=== PATIENT | male | born 1970 | race Caucasian/White ===

== ENCOUNTER 2020-05-24 03:01 | Emergency (ER) | payer MEDICAID, OTHER ==
[2020-05-24 03:22] VITALS: BP 160/98; PULSE 59
[2020-05-24] MEDS ORDERED: Ketorolac 30 MG/ML SDV IVPUSH ONE (03:42)
[2020-05-24] MEDS ORDERED: Sodium Chloride 0.9% 1,000 ML IV ONE (03:42)
[2020-05-24] MEDS ORDERED: Sodium Chloride 0.9% 10 ML Syringe FLUSH PRN (03:42)
[2020-05-24] MEDS ORDERED: Ondansetron 4 MG/2 ML SDV IVPUSH ONE (03:43)
--- NOTE | 2020-05-24 04:01 | EDM.PDOC ---
ED HPI GENERAL MEDICAL PROBLEM - General Chief Complaint: Genitourinary Problem Stated Complaint: KIDNEY STONES Time Seen by Provider: 05/24/20 03:37 Source of Information: Reports: Patient History Limitations: Reports: No Limitations - History of Present Illness INITIAL COMMENTS - FREE TEXT/NARRATIVE: Kumar is a 49-year-old male presenting to the ED with acute onset of right flank pain radiating down to the groin and lower abdomen. He denies any fever or chills. He did have some diaphoresis secondary to pain and mild nausea. His symptoms started around 0100 hrs. when he got up and thought he had to go to the bathroom. He drank some water because he felt thirsty and almost immediately had acute onset of the right flank pain. He tried to urinate but was unsuccessful and it caused increase in the pain. The patient reports that he has been having some difficulty with urination for about a week but had attributed it to being 49 years old and having a maturing prostate. States that he did not have a good flow of his urine. He has no previous history of kidney stones. He is taking subweight loss supplement that is in pill form but he is unsure of the name or what is in it. On presentation, his pain is a 9 out of 10 in intensity. Right Flank Pain Score (Numeric/FACES): 7 - Related Data Allergies Allergy/AdvReac Type Severity Reaction Status Date / Time No Known Allergies Allergy Verified 05/24/20 03:16 Home Meds: Home Meds NK [No Known Home Meds] 05/24/20 [History] Past Medical History HEENT History: Reports: Impaired Vision Social & Family History - Tobacco Use Tobacco Use Status *Q: Never Tobacco User - Caffeine Use Caffeine Use: Reports: None ED ROS GENERAL - Review of Systems Review Of Systems: See Below Constitutional: Reports: Diaphoresis HEENT: Reports: No Symptoms Respiratory: Reports: No Symptoms Cardiovascular: Reports: No Symptoms Endocrine: Reports: No Symptoms GI/Abdominal: Reports: Abdominal Pain, Nausea : Reports: Flank Pain, Urinary Retention Musculoskeletal: Reports: No Symptoms Skin: Reports: No Symptoms Neurological: Reports: No Symptoms Psychiatric: Reports: No Symptoms Hematologic/Lymphatic: Reports: No Symptoms Immunologic: Reports: No Symptoms ED EXAM, RENAL/ - Physical Exam Exam: See Below Exam Limited By: No Limitations General Appearance: Alert, No Apparent Distress Eye Exam: Bilateral Eye: EOMI, PERRL Head: Atraumatic, Normocephalic Neck: Normal Inspection, Supple, Non-Tender, Full Range of Motion Respiratory/Chest: No Respiratory Distress, Lungs Clear, Normal Breath Sounds Cardiovascular: Normal Peripheral Pulses, Regular Rate, Rhythm, No Murmur GI/Abdominal: Normal Bowel Sounds, Soft, Non-Tender, No Organomegaly Back Exam: Normal Inspection, Full Range of Motion. No: CVA Tenderness (R), CVA Tenderness (L), Decreased Range of Motion, Muscle Spasm, Paraspinal Tenderness, Vertebral Tenderness Extremities: Normal Inspection, Normal Range of Motion Neurological: Alert, Oriented, Normal Cognition, No Motor/Sensory Deficits Psychiatric: Normal Affect, Normal Mood Skin Exam: Warm, Dry, Intact, Normal Color Lymphatic: No Adenopathy Course - Vital Signs Last Recorded V/S: Last Vital Signs Temp 35.1 C L 05/24/20 03:17 Pulse 59 L 05/24/20 03:17 Resp 20 05/24/20 03:17 BP 160/98 H 05/24/20 03:17 Pulse Ox 98 05/24/20 03:17 - Orders/Labs/Meds Orders: Active Orders 24 hr Category Date Time Status Abdomen Pelvis wo Cont [CT] Stat Exams 05/24/20 03:42 Taken Sodium Chloride 0.9% [Normal Saline] 1,000 ml Med 05/24/20 03:42 Active IV .BOLUS Sodium Chloride 0.9% [Saline Flush] Med 05/24/20 03:42 Active 10 ml FLUSH ASDIRECTED PRN Saline Lock Insert [OM.PC] Routine Oth 05/24/20 03:42 Ordered Medication Orders Sodium Chloride (Normal Saline) 1,000 mls @ 999 mls/hr IV .BOLUS ONE Stop: 05/24/20 04:42 Sodium Chloride (Sodium Chloride 0.9% 10 Ml Syringe) 10 ml FLUSH ASDIRECTED PRN PRN Reason: Keep Vein Open Labs: Laboratory Tests 05/24/20 Range/Units 03:42 Urine Color Yellow (YELLOW) Urine Appearance Clear (CLEAR) Urine pH 5.5 (5.0-8.0) Ur Specific [place] 1.025 (1.008-1.030) Urine Protein Negative (NEGATIVE) mg/dL Urine Glucose (UA) Negative (NEGATIVE) mg/dL Urine Ketones Negative (NEGATIVE) mg/dL Urine Occult Blood Moderate H (NEGATIVE) Urine Nitrite Negative (NEGATIVE) Urine Bilirubin Negative (NEGATIVE) Urine Urobilinogen 0.2 (0.2-1.0) EU/dL Ur Leukocyte Esterase Negative (NEGATIVE) Urine RBC 10-20 H (0-5) Urine WBC 0-5 (0-5) Ur Epithelial Cells Rare Amorphous Sediment Not seen Urine Bacteria Not seen Urine Mucus Rare Meds: Medications Generic Name Dose Route Start Last Admin Trade Name Freq PRN Reason Stop Dose Admin Sodium Chloride 1,000 mls @ 999 mls/hr 05/24/20 03:42 Normal Saline IV 05/24/20 04:42 .BOLUS ONE Sodium Chloride 10 ml 05/24/20 03:42 Sodium Chloride 0.9% 10 Ml Syringe FLUSH ASDIRECTED PRN Keep Vein Open Discontinued Medications Generic Name Dose Route Start Last Admin Trade Name Freq PRN Reason Stop Dose Admin Ketorolac Tromethamine 30 mg 05/24/20 03:42 Ketorolac 30 Mg/Ml Sdv IVPUSH 05/24/20 03:43 ONETIME ONE Ondansetron HCl 4 mg 05/24/20 03:43 Ondansetron 4 Mg/2 Ml Sdv IVPUSH 05/24/20 03:44 ONETIME ONE - Radiology Interpretation Free Text/Narrative:: I reviewed the CT of the abdomen and pelvis without contrast. Shows normal abdominal contents with normal size kidneys and ureters. There is a small 2 mm stone noted in the bladder. There is no hydronephrosis or hydroureter. This is likely a recently passed stone likely hung up at the right UVJ causing the flank pain. Departure - Departure Time of Disposition: 04:27 Disposition: Home, Self-Care 01 Clinical Impression: Calcium ureterolithiasis - Discharge Information *PRESCRIPTION DRUG MONITORING PROGRAM REVIEWED*: Not Applicable *COPY OF PRESCRIPTION DRUG MONITORING REPORT IN PATIENT ROSELINE: Not Applicable Instructions: Kidney Stones, [id number] Referrals: PCP,None [Primary Care Provider] - Forms: ED Department Discharge Care Plan Goals: I would like you to drink 10 ounces of water every hour you are awake for the next 7 days. This will help increase urine flow and prevent any stricture formation in the ureter while it heals. You may experience small amounts of twinges of pain due to ureteral spasm. These will usually pass you may take Tylenol or ibuprofen for pain. I do not expect you to have the severe pain that she presented with from the spasms. Sepsis Event Note (ED) - Evaluation Sepsis Screening Result: No Definite Risk - Focused Exam Vital Signs: Vital Signs Temp Pulse Resp BP Pulse Ox 05/24/20 03:17 35.1 C L 59 L 20 160/98 H 98 - Problem List & Annotations (1) Calcium ureterolithiasis SNOMED Code(s): 73430905 Code(s): N20.1 - CALCULUS OF URETER Status: Acute Priority: High Current Visit: Yes - Problem List Review Problem List Initiated/Reviewed/Updated: Yes - My Orders Last 24 Hours: My Active Orders 05/24/20 03:42 Abdomen Pelvis wo Cont [CT] Stat Sodium Chloride 0.9% [Normal Saline] 1,000 ml IV .BOLUS Sodium Chloride 0.9% [Saline Flush] 10 ml FLUSH ASDIRECTED PRN Saline Lock Insert [OM.PC] Routine - Assessment/Plan Last 24 Hours: My Active Orders 05/24/20 03:42 Abdomen Pelvis wo Cont [CT] Stat Sodium Chloride 0.9% [Normal Saline] 1,000 ml IV .BOLUS Sodium Chloride 0.9% [Saline Flush] 10 ml FLUSH ASDIRECTED PRN Saline Lock Insert [OM.PC] Routine
--- NOTE | 2020-05-24 04:47 | CRLCT ---
Indication: Right-sided acute flank pain Technique: Nonenhanced axial CT imaging through the abdomen and pelvis. Sagittal and coronal reconstructions are provided. Comparison: None Findings: There is a 2 mm stone layering in the urinary bladder. There is no significant hydronephrosis on either side. Minimal fat stranding is noted around the right renal pelvis. Additional 2 mm nonobstructing stone is noted within an interpolar right renal calyx. No renal stones are seen on the left. There is normal renal cortical volume and attenuation bilaterally. There is unremarkable noncontrast appearance of the liver, gallbladder, spleen, pancreas, and adrenal glands. There is no abdominal lymphadenopathy. The abdominal aorta is normal in caliber. The stomach and duodenum are unremarkable. There are no abnormally dilated small bowel loops. The appendix is noninflamed. There is no colonic wall thickening. There is no mesenteric edema or intraperitoneal free fluid. The osseous structures are unremarkable. The included lung bases are clear. Impression: 1. A 2 mm stone layering in the bladder, likely recently passed. Minimal fat stranding around the right renal pelvis without hydronephrosis, suggesting the stone was passed from the right. 2. Additional 2 mm nonobstructing right renal stone. No left renal stones. Please note that all CT scans at this facility use dose modulation, iterative reconstruction, and/or weight-based dosing when appropriate to reduce radiation dose to as low as reasonably achievable. Dictated by Edenilson Bolden MD @ May 24 2020 4:37AM Signed by Dr. Edenilson Bolden @ May 24 2020 4:45AM
== END 2020-05-24 04:37 | disposition home or self-care (01) ==
LOC: JP.ED 03:01
DX: N20.2 Calculus of kidney with calculus of ureter (principal)
CPT/HCPCS: 74176; 81001; 99283; 99284-25

== ENCOUNTER 2022-12-15 18:23 | Emergency (ER) | payer OTHER ==
[2022-12-15 19:42] VITALS: BP 170/80; PULSE 77
[2022-12-15] MEDS ORDERED: Bacitracin Oint 1 GM U/D Packet TOP ONE (20:04)
[2022-12-15] MEDS ORDERED: Lidocaine 1% 5 ML VIAL INJECT ONE (20:04)
[2022-12-15] MEDS ORDERED: Diphtheria,Pertussis(Acell),Tetanus Vaccine 0.5 ML Syringe IM ONE (20:08)
== END 2022-12-15 20:56 | disposition home or self-care (01) ==
LOC: JP.ED 18:23
DX: S61.012A Laceration without foreign body of left thumb without damage to nail, initial encounter (principal); Z23 Encounter for immunization; W26.8XXA Contact with other sharp object(s), not elsewhere classified, initial encounter; Y92.89 Other specified places as the place of occurrence of the external cause
CPT/HCPCS: 12001; 90471; 90715; 99282-25